=== PATIENT | female | born 1975 | race African-American/Black ===

== ENCOUNTER 2016-11-02 00:42 | Emergency (ER) | payer MEDICAID ==
[~2016-11-02] VITALS: Ht 165.1 cm; Wt 177.4 kg
[~2016-11-02 00:42] MED LIST: CLINDAMYCIN HC150 MG ORAL; HYDROCHLOROTHIA50 MG ORAL; IBUPROFEN600 MG ORAL; KENALOG1 APPLIC TOPIC; NORVASC10 MG ORAL; SIMVASTATIN10 MG ORAL; VIBRAMYCIN100 MG ORAL; ZITHROMAX250 MG ORAL
[2016-11-02 01:05] VITALS: BP 148/88
[2016-11-02] MEDS ORDERED: LORATADINE5 MG/5 M4 PO (01:09)
[2016-11-02] MEDS ORDERED: SINGULAIR10 MG ORAL (01:10)
[2016-11-02] MEDS ORDERED: IBUPROFEN600 MG ORAL (01:22)
[2016-11-02] MEDS ORDERED: ROBAXIN-750750 MG PO (01:22)
[2016-11-02] MEDS ORDERED: Ketorolac 60mg Inj IM ONE (01:30)
[2016-11-02 01:35] VITALS: BP 141/80
--- NOTE | 2016-11-02 01:57 | Emergency Room Report ---
History of Present Illness General Chief Complaint: Back Pain-No Injury Source: Patient Present Illness HPI 41YOF walk-in with 2-3 days midline lower back pain after just started cardiovascular workout program at gym to lose weight prior to bariatric surgery. Pain started after workout. Pain with movement, walking. No prior back trauma, injury, known sciatica. Denies lower extremity weakness, urinary retention. Didnt take any OTC meds. Allergies: Coded Allergies: No Known Allergies (Unverified , 11/02/16) Patient History Past Medical History: none Past Surgical History: none Pertinent Family History: none Social History: Denies: alcohol use, drug use, smoking Last Menstrual Period: n/a Now: No Immunizations: UTD Reviewed Nursing Documentation: PMH: Agreed, PSxH: Agreed Nursing Documentation-PMH Past Medical History: No History, Except For Hx Hypertension: Yes Review of Systems All Other Systems: negative except mentioned in HPI Physical Exam Vital Signs Date Time Temp Pulse Resp B/P Pulse Ox O2 Delivery O2 Flow Rate FiO2 11/02/16 01:03 98.2 85 16 148/88 95 Room Air Sp02 EP Interpretation: reviewed, normal General Appearance: normal inspection, well appearing, no apparent distress, alert, GCS 15, non-toxic, obese Head: normocephalic Eyes: bilateral eye EOMI, bilateral eye PERRL ENT: normal ENT inspection, hearing grossly normal, normal voice Neck: normal inspection, full range of motion, supple, no bony tend Respiratory: normal inspection, lungs clear, normal breath sounds, no respiratory distress, no retraction, no wheezing Cardiovascular #1: regular rate, rhythm, no edema Gastrointestinal: normal inspection, normal bowel sounds, non tender, soft, no guarding, no hernia Genitourinary: no CVA tenderness Musculoskeletal: normal inspection, back normal, normal range of motion, Juliana' s Sign negative Neurologic: normal inspection, alert, oriented x3, responsive, green material value added assessor III-XII nml as tested, motor strength/tone normal, speech normal Psychiatric: normal inspection, judgement/insight normal, mood/affect normal Skin: normal inspection, normal color, no rash Medical Decision Making Diagnostic Impression: Primary Impression: Low back pain Qualified Codes: M54.5 - Low back pain ER Course A: low suspicion for cord compression given well appearance, bilateral paravertebral ttp, no focal neuro deficits, absence of midline ttp/masses and pain worse with movement with known exacerbating activity Toradol given in ED Rx Ibuprofen, Robaxin DC home Last Vital Signs Date Time Temp Pulse Resp B/P Pulse Ox O2 Delivery O2 Flow Rate FiO2 11/02/16 01:03 98.2 85 16 148/88 95 Room Air Status: improved Disposition: HOME, SELF-CARE Condition: Improved Scripts Ibuprofen* (MOTRIN*) 600 Mg Tablet 600 MG ORAL THREE TIMES A DAY for 7 Days, #30 TAB 0 Refills Prov: EMANUEL CLEMENS M.D. 11/02/16 Methocarbamol* (ROBAXIN-750*) 750 Mg Tablet 750 MG PO TID for 7 Days, #30 TAB 0 Refills Prov: EMANUEL CLEMENS M.D. 11/02/16 Referrals: [facility],REFERR[facility] (PCP) Patient Instructions: Back Pain, Adult Additional Instructions: Take ibuprofen with robaxin every 8 hours with food for low back pain Stretch often Follow up with primary care doctor in 1 week if no improvement EMANUEL CLEMENS M.D. Nov 02, 2016 01:57
== END 2016-11-02 01:45 | disposition home or self-care (01) ==
LOC: EMR 01:21
DX: M54.5 Low back pain (principal); I10 Essential (primary) hypertension
CPT/HCPCS: 96372; 99284

== ENCOUNTER 2017-12-15 11:45 | Emergency (ER) | payer MEDICAID ==
[~2017-12-15] VITALS: Ht 165.1 cm; Wt 165.1 kg
[~2017-12-15 11:45] MED LIST changes: +LORATADINE5 MG/5 M4 PO; +ROBAXIN-750750 MG PO; +SINGULAIR10 MG ORAL
[2017-12-15 12:40] VITALS: BP 143/95
[2017-12-15] MEDS ORDERED: Ketorolac 30mg Inj IM ONE (12:45)
--- NOTE | 2017-12-15 13:25 | Diagnostic Imaging Report ---
EXAM: XR Left Foot Complete, 3 or More Views CLINICAL HISTORY: PAIN TECHNIQUE: Frontal, lateral and oblique views of the left foot. COMPARISON: No relevant prior studies available. FINDINGS: Bones/joints: Unremarkable. No acute fracture. No dislocation. Soft tissues: Dorsal soft tissue swelling. No radiopaque foreign body. Other findings: Hyperdensities from manicured nails of the toes. IMPRESSION: 1. Dorsal soft tissue swelling. 2. No fracture or malalignment.
[2017-12-15] MEDS ORDERED: IBUPROFEN600 MG ORAL (13:38)
[2017-12-15 13:49] VITALS: BP 143/95
--- NOTE | 2017-12-16 14:47 | Emergency Room Report ---
History of Present Illness General Chief Complaint: Pain Source: Medical Record Present Illness HPI 42-year-old female presents ED complaining of left foot pain and swelling. Started 5 days ago. Pain is throbbing, 8 out of 10, nonradiating. States pain is getting worse. Denies fevers or chills. Denies any recent injury. Denies any calf pain. Denies any chest pain or shortness of breath. No other aggravating relieving factors. Denies any other Associated symptoms Allergies: Coded Allergies: No Known Allergies (Unverified , 11/02/16) Patient History Past Medical History: none Past Surgical History: none Pertinent Family History: none Social History: Denies: smoking, alcohol use, drug use Last Menstrual Period: Unknown Now: No : 4 Para: 4 Immunizations: UTD Reviewed Nursing Documentation: PMH: Agreed; PSxH: Agreed Nursing Documentation-PMH Hx Hypertension: Yes Review of Systems All Other Systems: negative except mentioned in HPI Physical Exam Vital Signs Date Time Temp Pulse Resp B/P (MAP) Pulse Ox O2 Delivery O2 Flow Rate FiO2 12/15/17 12:33 98.1 85 15 143/95 99 Room Air 98.1 Sp02 EP Interpretation: reviewed, normal General Appearance: no apparent distress, alert, GCS 15, non-toxic, obese Head: normocephalic Eyes: bilateral eye normal inspection, bilateral eye PERRL ENT: normal ENT inspection Neck: normal inspection Respiratory: normal inspection Cardiovascular #1: normal inspection Gastrointestinal: normal inspection Rectal: deferred Genitourinary: no CVA tenderness Musculoskeletal: no calf tenderness, swelling - L foot Neurologic: alert, oriented x3, responsive, motor strength/tone normal, sensory intact, speech normal Psychiatric: normal inspection Skin: normal inspection Lymphatic: normal inspection Medical Decision Making Diagnostic Impression: Primary Impression: Contusion of soft tissue ER Course Hospital Course 42-year-old F presents to ED complaining of L foot pain/swelling Differential diagnoses include: Fracture, dislocation, sprain, contusion Clinical course Patient placed on stretcher. After initial history and physical, I ordered pain medications and Xrays of L foot Xrays prelim read shows no acute fracture/dislocation. soft tissue swelling. likely soft tissue contusion Discussed findings with the patient. Patient states she is artery feeling better after pain medication. Crutches. Recommended ice, elevation, NSAIDs. Given referral to orthopedic clinic as outpatient Diagnosis - contusion of soft tissue Stable and discharged to home with prescription for Motrin. apply ice, keep elevated. weight bear as tolerated. Followup with PMD. Return to ED if symptoms recur or worsen Other X-Ray Diagnostic Results Other X-Ray Diagnostic Results : X-Ray ordered: L foot # of Views/Limited Vs Complete: 3 View Indication: Pain EP Interpretation: Yes Interpretation: no dislocation, no fractures, other - soft tissue swelling Impression: Other - soft tissue swelling Electronically Signed by: Electronically signed by Channing Mota MD Last Vital Signs Date Time Temp Pulse Resp B/P (MAP) Pulse Ox O2 Delivery O2 Flow Rate FiO2 12/15/17 13:49 98.1 85 18 143/95 99 Room Air 98.1 Status: improved Disposition: HOME, SELF-CARE Condition: Stable Scripts Ibuprofen* (MOTRIN*) 600 Mg Tablet 600 MG ORAL Q8H PRN for For Pain, #30 TAB 0 Refills Prov: Channing Mota MD 12/15/17 Referrals: NON PHYSICIAN (PCP) Departure Forms: Return to Work Return to Work Date: Dec 17, 2017 Work Restrictions: Desk Work Only Other Restrictions: please allow patient to wear comfortable shoes Patient Instructions: Contusion, [id number] Channing Mota MD Dec 16, 2017 14:47
== END 2017-12-15 14:15 | disposition home or self-care (01) ==
LOC: EMR 14:07
DX: S90.32XA Contusion of left foot, initial encounter (principal); X58.XXXA Exposure to other specified factors, initial encounter; Y92.9 Unspecified place or not applicable; I10 Essential (primary) hypertension
CPT/HCPCS: 73630; 96372; 99283; J1885

== ENCOUNTER 2019-06-09 08:25 | Emergency (ER) | payer MEDICAID ==
[~2019-06-09] VITALS: Ht 165.1 cm; Wt 157.4 kg
--- NOTE | 2019-06-09 08:47 | NUR ---
ED Nurse Note: PT CAME IN DUE TO RIGHT LATERAL FOOT PAIN S/P FALL MORE THAN A WEEK AGO. INITIALLY NOT PAINFUL BUT NOW C/O RIGHT FOOT PAIN AND REPORTS SWELLING. AAO X4, AMBULATES WITH ASSISTANCE
[2019-06-09] MEDS ORDERED: HYDROcodone/Acetamin 5/325 tab ORAL ONE (09:00)
--- NOTE | 2019-06-09 09:04 | NUR ---
ED Nurse Note: DAY TRADER AT THE BED SIDE FOR FOOT XRAY.
--- NOTE | 2019-06-09 09:41 | Emergency Room Report ---
History of Present Illness General Chief Complaint: Lower Extremity Injury Source: Patient Present Illness HPI 44yo f with history of hypertension, sleeve gastrectomy, presents with right foot pain, lateral midfoot area, that is worsened over the past week, constant, sharp, stabbing, nonradiating, worse with bearing weight, reports he was triggered by a fall 3 weeks ago, but then that pain resolved, and for the last week she has had increasing pain and swelling for no obvious reason. Calf pain , reports no pain more proximal than the heel, and reports she is only able to bear weight on her heel, her midfoot is too tender. Allergies: Coded Allergies: No Known Allergies (Unverified , 11/02/16) Patient History Past Medical History: see triage record Last Menstrual Period: 2008 Now: No Reviewed Nursing Documentation: PMH: Agreed; PSxH: Agreed Nursing Documentation-PMH Past Medical History: No History, Except For Hx Hypertension: Yes Review of Systems All Other Systems: negative except mentioned in HPI Physical Exam Vital Signs Date Time Temp Pulse Resp B/P (MAP) Pulse Ox O2 Delivery O2 Flow Rate FiO2 06/09/19 08:37 98.2 76 18 130/79 (96) 99 Room Air Sp02 EP Interpretation: reviewed, normal General Appearance: no apparent distress, alert, non-toxic Head: normocephalic Eyes: bilateral eye normal inspection, bilateral eye PERRL, bilateral eye EOMI ENT: normal ENT inspection, hearing grossly normal, normal pharynx, no angioedema, normal voice, moist mucus membranes Neck: normal inspection, full range of motion, supple, supple/symm/no masses Respiratory: chest non-tender, lungs clear, normal breath sounds, chest symmetrical, palpation of chest normal Cardiovascular #1: normal peripheral pulses, regular rate, rhythm Cardiovascular #2: 2+ radial (R), 2+ radial (L), 2+ dorsalis pedis (R), 2+ dorsalis pedis (L) Gastrointestinal: normal inspection, non tender, soft, no mass, no guarding, no rebound Rectal: deferred Genitourinary: normal inspection, no CVA tenderness Musculoskeletal: back normal, normal range of motion, no calf tenderness, gait/ station normal, Juliana's Sign negative, tender - Right midfoot lateral aspect with mild midline tenderness, no overlying erythema or warmth Neurologic: alert, motor strength/tone normal, aircraft navigator III-XII nml as tested, sensory intact, responsive, speech normal Psychiatric: judgement/insight normal, memory normal, mood/affect normal Lymphatic: no adenopathy Medical Decision Making Diagnostic Impression: Primary Impression: Injury of lower extremity ER Course Work-up including x-ray and ultrasound negative, suspect foot sprain, no evidence of overlying cellulitis. Will give crutches. Other X-Ray Diagnostic Results Other X-Ray Diagnostic Results : X-Ray ordered: r foot Indication: Pain EP Interpretation: Yes Interpretation: no dislocation, no fractures, other - Positive soft tissue swelling Impression: No acute disease Electronically Signed by: Nav Huertas MD Last Vital Signs Date Time Temp Pulse Resp B/P (MAP) Pulse Ox O2 Delivery O2 Flow Rate FiO2 06/09/19 08:37 98.2 76 18 130/79 (96) 99 Room Air Disposition: HOME, SELF-CARE Condition: Stable Referrals: NON PHYSICIAN (PCP) NAV HUERTAS M.D Jun 09, 2019 09:40
--- NOTE | 2019-06-09 09:56 | Diagnostic Imaging Report ---
Indication: Foot Pain Comparison: None Findings: 3 views of the right foot were obtained. No acute fractures, malalignment, erosions or periostitis are identified. There is some mild enthesophyte formation at the insertion of Achilles tendon on the posterior aspect of the calcaneus. There is minimal spurring at the plantar calcaneus as well. Mild soft tissue swelling is present nonspecific in nature. Impression: No acute findings.
--- NOTE | 2019-06-09 11:39 | NUR ---
ED Nurse Note: US STAFF AT THE BED SIDE.
[2019-06-09] MEDS ORDERED: ACETAMINOPHEN-1 EAC1 ORAL ×2 (12:04→12:40)
[2019-06-09 12:25] VITALS: BP 128/77
--- NOTE | 2019-06-09 12:26 | NUR ---
ER DISCHARGE NOTE: Patient is cleared to be discharged per ERMD, pt is aox4, on room air, with stable vital signs. pt was given dc and prescription instructions, pt was able to verbalize understanding, pt id band removed. pt is able to ambulate with steady gait. pt took all belongings. accompanied by daughter
--- NOTE | 2019-06-09 13:22 | Diagnostic Imaging Report ---
Indication: Right lower extremity pain and swelling. Technique: Duplex Doppler imaging performed from the right common femoral vein to the popliteal vein. FINDINGS: Normal compressibility demonstrated from the common femoral vein to the popliteal vein. Respiratory phasicity and good augmentation demonstrated on waveform analysis. There is no evidence of thrombosis. IMPRESSION: No evidence of deep venous thrombosis within the right lower extremity.
== END 2019-06-09 12:26 | disposition home or self-care (01) ==
LOC: EMR 09:05
DX: M25.571 Pain in right ankle and joints of right foot (principal); I10 Essential (primary) hypertension; S99.921A Unspecified injury of right foot, initial encounter; W19.XXXA Unspecified fall, initial encounter; Y92.9 Unspecified place or not applicable
CPT/HCPCS: 73630; 93971; Z7502; 99284

== ENCOUNTER 2020-01-15 22:30 | Emergency (ER) | payer MEDICAID ==
[~2020-01-15] VITALS: Ht 165.1 cm; Wt 149.7 kg
[~2020-01-15 22:30] MED LIST changes: +ACETAMINOPHEN-1 EAC1 ORAL
--- NOTE | 2020-01-15 22:37 | NUR ---
ED Nurse Note: Walk-in patient with complaints sore throat x 2 weeks Patient reports taking daughter's prednisone for a couple of days, 10mg with slight relief and then flare up. Patient reports pain at left neck 8/10 and admits its become increasingly difficult to swallow without pain. ERMD at bedside.
[2020-01-15 22:40] VITALS: BP 115/71
[2020-01-15] MEDS ORDERED: AMOXICILLIN500 MG ORAL (22:44)
[2020-01-15] MEDS ORDERED: IBUPROFEN600 M1 ORAL (22:44)
[2020-01-15] MEDS ORDERED: dexAMETHasone 10mg/ml Inj IV ONE (22:45)
--- NOTE | 2020-01-15 22:48 | Emergency Room Report ---
History of Present Illness General Chief Complaint: Sore Throat Source: Patient Present Illness HPI Disclaimer: Please note that this report is being documented using [employer] technology. This can lead to erroneous entry secondary to incorrect interpretation by the dictating instrument. HPI: 44-year-old female presents for evaluation of sore throat. Symptoms present approximately 8 days. Notes pain with swallowing but still able to tolerate secretions, solids and liquids. Denies fever but reports unilateral lymph node swelling. Denies pain in the ears, tinnitus, discharge. Has been taking ibuprofen and Tylenol for pain without improvement. Symptoms appear to be worsening. Unable to see her PMD. Took 10 mg of prednisone earlier today. PMH: Hypertension, asthma PSH: Hysterectomy Allergies: Reviewed Social Hx: Reviewed Allergies: Coded Allergies: No Known Allergies (Unverified , 11/02/16) COVID-19 Screening Contact w/high risk pt: No Experienced COVID-19 symptoms?: Yes COVID-19 Testing performed COREMAKER: No Patient History Last Menstrual Period: 2007 Nursing Documentation-PMH Hx Hypertension: Yes Review of Systems All Other Systems: negative except mentioned in HPI Physical Exam Vital Signs Date Time Temp Pulse Resp B/P (MAP) Pulse Ox O2 Delivery O2 Flow Rate FiO2 01/15/20 22:34 98.6 78 15 115/71 (86) 98 Room Air General: Awake and alert, no acute distress HEENT: NC/AT. EOMI. uvula is midline. Tonsils are moderately edematous and erythematous with faint exudate over the left tonsil. No evidence of COREMAKER. No trismus. Tolerating secretions. Phonation is normal. Moderate submandibular lymphadenopathy, left greater than right. Resp: Normal work of breathing Skin: Intact. No abrasions, laceration or rash over the exposed skin MSK: Normal tone and bulk. Moving all extremities. No obvious deformity. Neuro: Awake and alert. Mentating appropriately Medical Decision Making Diagnostic Impression: Primary Impression: Pharyngitis Additional Impression: Tonsillitis ER Course 44-year-old female presenting for evaluation of 1 week persistent sore throat. Differential includes not limited to pharyngitis, tonsillitis, viral syndrome among others. No evidence of peritonsillar abscess or retropharyngeal abscess at this time. She is otherwise well-appearing. Centor score moderate and will start on amoxicillin. Will give a dose of Decadron here in the ED as she has taken a suboptimal dose of prednisone, only 10 mg. We will follow-up with her PMD. Discussed reasons to return to the emergency department. She understands and agrees with this treatment plan. Last Vital Signs Date Time Temp Pulse Resp B/P (MAP) Pulse Ox O2 Delivery O2 Flow Rate FiO2 01/15/20 22:40 98.6 82 15 115/71 98 Room Air Disposition: HOME, SELF-CARE Condition: Stable Scripts Ibuprofen* (MOTRIN*) 600 Mg Tablet 600 MG ORAL Q6H PRN for For Pain, #30 TAB 0 Refills Prov: Marcelo Campbell MD 01/15/20 Amoxicillin* (AMOXIL*) 500 Mg Capsule 500 MG ORAL BID for 7 Days, #14 CAP Prov: Marcelo Campbell MD 01/15/20 Patient Instructions: Tonsillitis Additional Instructions: Please follow-up with your primary care doctor in the next 1 to 3 days to discuss this emergency department visit and for reevaluation. If you have any new or worsening symptoms please return to the emergency department for reevaluation. Please note that this report is being documented using [employer] technology. This can lead to erroneous entry secondary to incorrect interpretation by the dictating instrument. Marcelo Campbell MD Jan 15, 2020 22:48
[2020-01-15 23:03] VITALS: BP 115/71
--- NOTE | 2020-01-15 23:04 | NUR ---
ER DISCHARGE NOTE: Patient is cleared to be discharged per ERMD. Patient rendered prescribed medication with decadron given PO as indicated verbally by provider. Patient tolerated medication administration well. Patient Id band removed, Patient departed to home via personal vehicle in stable condition.
== END 2020-01-15 23:29 | disposition home or self-care (01) ==
LOC: EMR 22:53
DX: J02.9 Acute pharyngitis, unspecified (principal); I10 Essential (primary) hypertension; Z79.899 Other long term (current) drug therapy
CPT/HCPCS: 96374; Z7502; 99284